=== PATIENT | female | born 1975 | race Caucasian/White ===

== ENCOUNTER 2025-03-11 13:19 | Emergency (ER) | payer SELFPAY ==
[2025-03-11 13:24] VITALS: BP 144/91; PULSE 79; RESP 16; TEMP 36.7; O2SAT 100; BMI 30.2
--- NOTE | 2025-03-11 13:45 | XRR_ITS ---
PROCEDURE INFORMATION: Exam: XR Right Foot Exam date and time: 03/11/2025 2:38 PM Age: 50 years old Clinical indication: Pain; Toes; Right; Additional info: Right 1st toe pain TECHNIQUE: Imaging protocol: Radiologic exam of the right foot. Views: 3 or more views. COMPARISON: No relevant prior studies available. FINDINGS: Bones/joints: Normal. Soft tissues: Normal. XR/XR foot RT min 3V* [id number] IMPRESSION: No acute findings.
--- NOTE | 2025-03-11 13:45 | W.ED.EXTPRO ---
HPI - Extremity Problem General: Chief complaint: Extremity Injury, Lower Stated complaint: pain/swelling in right foot big toe Time Seen by Provider: 03/11/25 13:35 History of Present Illness: Patient is a pleasant 50-year-old female without medical issues that comes to the emergency room with right first metatarsal-phalangeal joint swelling. 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 She stated this just started hurting and swelling. She states that she cannot stand right on her foot. Her pain is in this first toe mtp joint. No h/o gout. no diet change. No fevers. This started today Associated symptoms: Deny chest pain, fever(s) or rash Related Data Previous Rx's ?Medication ?Instructions ?Recorded colchicine 0.6 mg capsule 0.6 mg PO BID #20 caps 03/11/25 Allergies Allergy/AdvReac Type Severity Reaction Status Date / Time No Known Allergies Allergy Verified 03/11/25 13:28 Review of Systems General: Reports: 10 or more systems reviewed and unremarkable except in HPI and below Const: Denies: fever(s), chills or change in weight Eyes: Denies: change in vision ENMT: Denies: throat pain or odynophagia Card: Denies: chest pain or palpitations Resp: Denies: dyspnea or productive cough GI: Denies: abdominal pain, nausea or vomiting : Denies: flank pain or difficulty voiding Musc: Reports: extremity pain, joint pain and joint swelling; Denies: neck pain or back pain Skin/Breast: Denies: rash or pruritus Neuro: Reports: numbness in extremities, lack of coordination (due to pain) and difficulty walking (due to pain); Denies: headache(s) or sensory changes Psych: Denies: anxiety or depression Endo: Denies: polyuria or polydipsia Physical Exam Const: COMMON NORMALS: no acute distress, average body habitus and patient oriented x3 GENERAL APPEARANCE: cooperative Neck/C-Spine: COMMON NORMALS: no JVD Resp: COMMON NORMALS: normal respiratory effort and clear to auscultation bilaterally EFFORT & INSPECTION: Yes able to speak in complete sentences AUSCULTATION: clear to auscultation bilaterally Cardio: COMMON NORMALS: no JVD, regular rate, regular rhythm, S1 normal heart sound present and S2 normal heart sound present RATE: regular rate RHYTHM: regular rhythm HEART SOUNDS: S1 normal heart sound present and S2 normal heart sound present GI: COMMON NORMALS: Normal to inspection, nondistended, normoactive bowel sounds present INSPECTION: Yes normal to inspection : COMMON NORMALS: Yes no CVA tenderness BLADDER/KIDNEY EXAM: Yes no CVA tenderness Back/Pelvis: COMMON NORMALS: no CVA tenderness Neuro: COMMON NORMALS: patient oriented x3 Course Vital Signs: Vital signs: Vital Signs Temperature 98.0 F 03/11/25 13:24 Pulse Rate 79 03/11/25 13:24 Respiratory Rate 16 03/11/25 13:24 Blood Pressure 144/91 03/11/25 13:24 Pulse Oximetry 100 03/11/25 13:24 Oxygen Delivery Me thod Room Air 03/11/25 13:24 MDM - Extremity (Nontraumatic) Medical Decision Making Patient is a pleasant 50-year-old female without medical issues 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 She started having increasing right first MTP joint pain today without injury. Symptoms are consistent with gout. X-ray is currently pending, however discussed with patient, and recommended uric acid level. Patient does not want to await additional hour for uric acid, and would just like x-ray at this time. Lab Data Radiology Impressions Foot X-Ray 03/11/25 13:45 IMPRESSION: No acute findings. XR interpretation done by ED provider, pending radiology final review ED provider radiology interpretation(s): punched erosion on lateral side of 1st MTP Discharge Plan Discharge Patient Disposition: Home Clinical Impression: Gouty arthritis of right great toe Condition: Stable Prescriptions: New colchicine 0.6 mg capsule 0.6 mg PO BID Qty: 20 0RF Rx Instructions: Take 2 at once, then repeat 1 in an hour. Day #2 may use bid Discharge Orders: Discharge ED (Routine); Ordered 03/11/25 Ordered By: Che Beauchamp Discharge Diet: Usual diet Discharge Activity: Increase activity as tolerated Patient Instructions: Gout (ED) Activity Restrictions/Additional Instructions: Avoid ibuprofen or naproxen since you will be on prescription colchicine. You may utilize Tylenol for pain. Elevate your foot. Ice if tolerated. You may be off work today and tomorrow. Stand Alone Forms: Work/School Release Print Language: British Coding Level of Care Code ED Social Media Specialist for Breanna Toure
--- NOTE | 2025-03-12 10:22 | PC.NURSE ---
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
== END 2025-03-11 15:16 | disposition home or self-care (01) ==
PROVIDERS: Emergency Provider Physician Assistant
DX: M10.071 Idiopathic gout, right ankle and foot (principal)
CPT/HCPCS: 73630; 99283